=== PATIENT | female | born 1995 | race African-American/Black ===

== ENCOUNTER 2017-04-13 18:19 | Emergency (ER) | payer SELFPAY ==
[2017-04-13 21:16] LABS: NEG OBC UR NEG; POS OBC UR POS
[2017-04-13] MEDS ORDERED: CONTRAST GIVEN MC (21:30)
[2017-04-13 22:10] LABS: ANION GAP 10 (6-14); BLOOD UREA NITROGEN 15 mg/dL (7-20); CALCIUM 8.7 mg/dL (8.5-10.1); CARBON DIOXIDE 26 mmol/L (21-32); CHLORIDE 106 mmol/L (98-107); CREATININE 0.9 mg/dL (0.6-1.0); GFR 95.6; GLUCOSE 89 mg/dL (70-99); POTASSIUM 3.7 mmol/L (3.5-5.1); SODIUM 142 mmol/L (136-145)
[2017-04-13] MEDS: IOHEXOL 300 MG/ML 100ML VIAL. IV (22:30)
[2017-04-14] MEDS: IBUPROFEN 600 MG TABLET. PO (00:13)
[2017-04-14] MEDS ORDERED: IOHEXOL 300 MG/ML 100ML VIAL. (02:04)
== END 2017-04-14 00:14 | disposition home or self-care (01) ==
LOC: ER 04-14 00:14
DX: R09.1 Pleurisy (principal); J98.11 Atelectasis; J45.909 Unspecified asthma, uncomplicated; Z91.011 Allergy to milk products
CPT/HCPCS: 36415; 71020; 71275; 80048; 81025; 85379; 93005; 99285-25; Q9967

== ENCOUNTER 2018-07-29 12:33 | Observation (INO) | payer OTHER ==
[2017-04-13 23:43] VITALS: BP 106/68
== END 2018-07-29 14:18 | disposition home or self-care (01) ==
LOC: 3 SO LND 12:33
PROVIDERS: ADMIT Obstetrics & Gynecology; ATTEND Obstetrics & Gynecology
DX: O36.8120 Decreased fetal movements, second trimester, not applicable or unspecified (principal); Z3A.20 20 weeks gestation of pregnancy
CPT/HCPCS: G0378; G0379

== ENCOUNTER 2019-02-13 12:55 | Emergency (ER) | payer OTHER ==
[2017-04-13 23:43] VITALS: BP 106/68
== END 2019-02-13 13:43 | disposition left against medical advice (07) ==
LOC: ER 12:55
DX: N93.9 Abnormal uterine and vaginal bleeding, unspecified (principal); R10.9 Unspecified abdominal pain; M54.9 Dorsalgia, unspecified; Z53.21 Procedure and treatment not carried out due to patient leaving prior to being seen by health care provider
CPT/HCPCS: 99284

== ENCOUNTER 2019-03-15 16:50 | Emergency (ER) | payer SELFPAY ==
[~2019-03-15] VITALS: Ht 165.1 cm; Wt 70.8 kg
[2019-03-15 17:58] VITALS: BP 120/68
[2019-03-15] MEDS ORDERED: CEPH-264 PO (18:09)
--- NOTE | 2019-03-15 18:09 | PHYS DOC ---
Past Medical History Past Medical History: Asthma (ALYSIA LIEBERMAN APRN) Past Surgical History: No Surgical History (ALYSIA LIEBERMAN APRN) Alcohol Use: Rarely Drug Use: None (ALYSIA LIEBERMAN APRN) Attending Signature I have participated in the care of this patient and I have reviewed and agree with all pertinent clinical information above including history, exam, and recommendations. (AJIT LOPEZ MD) Adult General Chief Complaint Chief Complaint: ABSCESS HPI HPI Patient is a 23 year old female who presents with abscess to the left ear. The patient reports her pain as 6 out of 10 in severity she states she is having difficulty hearing earlier. She states his been ongoing for 2-3 days. Has never had an abscess to the ear before. (ALYSIA LIEBERMAN APRN) Review of Systems Review of Systems Constitutional: Denies fever or chills [] Eyes: Denies change in visual acuity, redness, or eye pain [] HENT: Reports L ear pain and abscess. Respiratory: Denies cough or shortness of breath [] Cardiovascular: No additional information not addressed in HPI [] GI: Denies abdominal pain, nausea, vomiting, bloody stools or diarrhea [] : Denies dysuria or hematuria [] Musculoskeletal: Denies back pain or joint pain [] Integument: Denies rash or skin lesions [] Neurologic: Denies headache, focal weakness or sensory changes [] Endocrine: Denies polyuria or polydipsia [] Complete systems were reviewed and found to be within normal limits, except as documented in this note. (ALYSIA LIEBERMAN APRN) Allergies Allergies Allergies Coded Allergies Type Severity Reaction Last Updated Verified lactose Allergy Intermediate Nausea and Vomiting 12/27/14 Yes (AJIT LOPEZ MD) Physical Exam Physical Exam Constitutional: Well developed, well nourished, no acute distress, non-toxic appearance. [] HENT: Normocephalic, atraumatic, L external ear has small abscess that is draining exudate, oropharynx moist, no oral exudates, nose normal. [] Eyes: PERRLA, EOMI, conjunctiva normal, no discharge. [] Neck: Normal range of motion, no tenderness, supple, no stridor. [] Skin: Warm, dry, no erythema, no rash. [] Back: No tenderness, no CVA tenderness. [] Extremities: No tenderness, no cyanosis, no clubbing, ROM intact, no edema. [] Neurologic: Alert and oriented X 3, normal motor function, normal sensory function, no focal deficits noted. [] Psychologic: Affect normal, judgement normal, mood normal. [] (ALYSIA LIEBERMAN APRN) Current Patient Data Vital Signs Vital Signs Date Time Temp Pulse Resp B/P (MAP) Pulse Ox O2 Delivery O2 Flow Rate FiO2 03/15/19 17:58 98.6 88 16 120/68 (85) 96 Room Air 98.6 (AJIT LOPEZ MD) EKG EKG [] (ALYSIA LIEBERMAN APRN) Radiology/Procedures Radiology/Procedures [] (ALYSIA LIEBERMAN APRN) Course & Med Decision Making Course & Med Decision Making Pertinent Labs and Imaging studies reviewed. (See chart for details) Discussed with patient. I am concerned that without the ear abscess being treated that there is concern they can develop into a major infection within the ear such as mastoiditis. Also discussed with the patient I'm concerned that she has an abscess in her middle ear as this is not a common occurrence. Discussed with the patient that she should follow-up with ENT especially if this does not improve with Keflex. (ALYSIA LIEBERMAN APRN) Dragon Disclaimer Dragon Disclaimer This electronic medical record was generated, in whole or in part, using a voice recognition dictation system. (ALYSIA LIEBERMAN APRN) Departure Departure Impression: Primary Impression: Abscess of left ear canal Disposition: 01 HOME, SELF-CARE Condition: STABLE Referrals: NO PCP (PCP) ALEX CARLISLE MD Patient Instructions: Abscess Additional Instructions: Thank you for visiting [facility]. We appreciate you trusting us with your care. If any additional problems come up don't hesitate to return to visit us. Please follow up with your primary care provider so they can plan additional care if needed and know about the problem that you had. If symptoms worsen come back to the Emergency Department. Any concerning symptoms that start such as chest pain, shortness of air, weakness or numbness on one side of the body, running high fevers or any other concerning symptoms return to the ER. You have been prescribed an antibiotic today to help fight your infection. Please take all of the antibiotic as directed. If after 48 hours the infection is not improving, please return for more care. If the infection worsens, return to ER for additional care. Please follow up with ear nose and throat as needed. Scripts Cephalexin (KEFLEX) 500 Mg Capsule 1 CAP PO QID for 7 Days, #28 CAP 0 Refills Prov: ALYSIA LIEBERMAN APRN 03/15/19 ALYSIA LIEBERMAN APRN Mar 15, 2019 18:09 AJIT LOPEZ MD Mar 15, 2019 19:05
== END 2019-03-15 18:26 | disposition home or self-care (01) ==
LOC: ER 16:50
DX: H66.42 Suppurative otitis media, unspecified, left ear (principal); J45.909 Unspecified asthma, uncomplicated; Z91.011 Allergy to milk products
CPT/HCPCS: 99283